=== PATIENT | male | born 1980 | race Caucasian/White ===

== ENCOUNTER 2016-05-13 23:19 | Emergency (ER) | payer OTHER ==
[~2016-05-13] VITALS: Ht 188 cm; Wt 131.5 kg
[2016-05-13 23:55] VITALS: BP 132/83
== END 2016-05-14 01:25 | disposition home or self-care (01) ==
LOC: ER 23:22
DX: J06.9 Acute upper respiratory infection, unspecified (principal); B19.20 Unspecified viral hepatitis C without hepatic coma; F31.9 Bipolar disorder, unspecified
CPT/HCPCS: 99281; A4606; Z7610; Z7502

== ENCOUNTER 2024-07-30 12:11 | Emergency (ER) | payer MEDICARE, OTHER ==
[~2024-07-30] VITALS: Ht 188 cm; Wt 131.5 kg
[2024-07-30 12:23] VITALS: BP 140/89; TEMP 98.7; O2SAT 97
[2024-07-30] MEDS ORDERED: ALBU18HF2 INH (13:08)
[2024-07-30] MEDS ORDERED: AZIT250T13 PO (13:08)
[2024-07-30] MEDS ORDERED: AMOX500C2 PO (13:08)
== END 2024-07-30 13:17 | disposition home or self-care (01) ==
LOC: ER 12:25
DX: J22 Unspecified acute lower respiratory infection (principal); R05.9 Cough, unspecified; R09.81 Nasal congestion
CPT/HCPCS: 71045-TC

== ENCOUNTER 2024-09-11 11:38 | Emergency (ER) | payer OTHER ==
[~2024-09-11] VITALS: Ht 188 cm; Wt 126.4 kg
[~2024-09-11 11:38] MED LIST: ALBU18HF2 INH; AMOX500C2 PO; AZIT250T13 PO
[2024-09-11] MEDS ORDERED: IBUP-1955 PO (12:24)
[2024-09-11] MEDS ORDERED: ACET325T53 PO (12:24)
[2024-09-11] MEDS ORDERED: NAPROXEN 250 MG TABLET ONE (12:29)
[2024-09-11] MEDS: NAPROXEN 250 MG TABLET PO ONE (12:33)
[2024-09-11 13:08] VITALS: BP 125/80; TEMP 98.5; O2SAT 95
== END 2024-09-11 12:32 | disposition home or self-care (01) ==
LOC: ER 11:38
DX: M79.651 Pain in right thigh (principal); E11.9 Type 2 diabetes mellitus without complications; F32.A Depression, unspecified; Z79.899 Other long term (current) drug therapy

== ENCOUNTER 2024-09-27 12:41 | Emergency (ER) | payer OTHER ==
[~2024-09-27] VITALS: Ht 188 cm; Wt 81.6 kg
[~2024-09-27 12:41] MED LIST changes: +ACET325T53 PO; +IBUP-1955 PO
[2024-09-27 13:27] LABS: BASOPHILS % (AUTO) 0.7 % (0.0-2.0); EOSINOPHILS # (AUTO) 0.1 K/uL (0.0-0.7); EOSINOPHILS % (AUTO) 2.1 % (0.0-6.0); HEMATOCRIT 46 % (39-51); HEMOGLOBIN 16.3 g/dL (13.5-17.5); LYMPHOCYTES # (AUTO) 2.7 K/uL (0.8-4.8); LYMPHOCYTES % (AUTO) 42.2 % (20.0-44.0); MEAN CORPUSCULAR HEMOGLOBIN 32 PG (26.0-33.0); MEAN CORPUSCULAR HGB CONC 36 g/dl (31.0-36.0); MEAN CORPUSCULAR VOLUME 91 fL (80-96); MONOCYTES # (AUTO) 0.5 K/uL (0.1-1.30); MONOCYTES % (AUTO) 7.8 % (2.0-12.0); NEUTROPHILS % (AUTO) 47.2 % (43.0-81.0); PLATELET COUNT (AUTO) 206 K/uL (150-450); RED BLOOD CELL COUNT(AUTO) 5.02 MIL/uL (4.5-6.0); RED CELL DISTRIBUTION WIDTH 13.5 % (11.5-15.0); WHITE BLOOD COUNT (AUTO) 6.3 K/uL (4.3-11.0)
[2024-09-27 13:34] LABS: SITE, VBG VBG - N/A; VBG COHb 0.2 % (0.5-1.5); VBG MetHb 0.3 % (0.5-1.5); VBG O2Hb 83.8 % (0-79); VBG OXYGEN SATURATION 84.2 % (60.0-85.0); VBG PH 7.393 (7.320-7.430); VBG PO2 48.1 mmHg (23.0-48.0); VBG TOTAL HEMOGLOBIN 16.3 G/dL (13.5-17.5)
[2024-09-27] MEDS ORDERED: METF-440 PO (13:39)
[2024-09-27 14:04] LABS: CALCIUM, SERUM 9.2 mg/dL (8.5-10.1); CREATININE 0.9 mg/dL (0.6-1.3); POTASSIUM 3.9 mmol/L (3.5-5.1)
[2024-09-27] MEDS: IV NS 0.9% 1,000 ML BAG IV ONE (14:05)
[2024-09-27] MEDS ORDERED: INSULIN REGULAR, HUMAN 100 UNIT/ML 10 ML VIAL ONE (14:19)
[2024-09-27] MEDS: INSULIN REGULAR, HUMAN 100 UNIT/ML 10 ML VIAL SQ ONE (14:22)
[2024-09-27 15:16] VITALS: BP 129/82; TEMP 98.7; O2SAT 96
== END 2024-09-27 15:18 | disposition home or self-care (01) ==
LOC: ER 12:44
DX: E11.65 Type 2 diabetes mellitus with hyperglycemia (principal); Z79.84 Long term (current) use of oral hypoglycemic drugs; Z79.899 Other long term (current) drug therapy
CPT/HCPCS: 99283; 96360; 82803 ×2; 85025; 80048; 82010; 36415; 82962; 96372; J1815; J7030